=== PATIENT | female | born 1970 | race Caucasian/White ===

== ENCOUNTER → 2017-10-28 | Outpatient (CLI) | payer OTHER | END | disposition home or self-care (01) | LOC: KCIC MRI 13:58 | DX: S80.12XA Contusion of left lower leg, initial encounter (principal); M22.42 Chondromalacia patellae, left knee; X58.XXXA Exposure to other specified factors, initial encounter; Y93.89 Activity, other specified; Y92.89 Other specified places as the place of occurrence of the external cause; Y99.8 Other external cause status | CPT/HCPCS: 73721 ==

== ENCOUNTER → 2018-03-20 | Outpatient (CLI) | payer OTHER ==
--- NOTE | 2018-03-20 14:11 | KCIC ---
Examination: MRI of the left knee without contrast HISTORY: History of left tibial stress fracture, continued pain below the jointline COMPARISON: 10/28/2017 TECHNIQUE: Multiplanar, multisequence MR imaging of the left knee was performed without contrast. FINDINGS: The anterior cruciate ligament, posterior cruciate ligament appears intact. The medial meniscus, lateral meniscus appears intact. The medial collateral ligament is intact. The lateral collateral ligamentous complex including the fibular collateral ligament, biceps femoris tendon, popliteus tendon appear intact. The extensor mechanism is intact. The cartilage in the medial, lateral, compartments appear intact. There is minimal superficial fraying of cartilage identified in the patellofemoral compartment. The medial retinaculum, lateral retinaculum appear intact. There is mild increased T2 signal identified in the distal iliotibial band at its attachment to the Gerdy's tubercle with the minimal T2 signal identified in the lateral anterior tibia at the attachment of the iliotibial band. Compared to prior exam the T2 signal has decreased. Minimal knee joint effusion. Impression: 1. Mild edema identified about the distal iliotibial band at its attachment to the Gerdy's tubercle with minimal bone trabecular edema at its attachment. Compared to prior exam the soft tissue edema and the trabecular edema has decreased. 2. Grade I chondromalacia patella. Electronically signed by: Nickolas Cannon MD (03/20/2018 2:08 PM) [id number]
== END | disposition home or self-care (01) ==
LOC: KCIC MRI 12:04
PROVIDERS: ATTEND Orthopaedic Surgery
DX: M84.362D Stress fracture, left tibia, subsequent encounter for fracture with routine healing (principal); M22.42 Chondromalacia patellae, left knee; R60.0 Localized edema; X58.XXXD Exposure to other specified factors, subsequent encounter
CPT/HCPCS: 73721